=== PATIENT | female | born 1975 | race African-American/Black ===

== ENCOUNTER 2017-12-01 06:01 | Inpatient (IN) ==
[2017-11-25 10:41] LABS: Basophils # 0.1 10*3/uL (0.0-0.2); Basophils % 1.3 % (0.0-0.8); Eosinophils # 0.3 10*3/uL (0.0-0.87); Hemoglobin 10.9 GM/DL (12.0-16.0); Immature Granulocytes % 0.3 %; Immature Granulocytes Absolute 0.02 #; Lymphocytes # 2.2 10*3/uL (1.4-4.0); Lymphocytes % 35.8 % (21.3-54.2); Mean Corpuscular HGB Conc 30.3 GM/DL (32-36); Mean Corpuscular Hemoglobin 21 PG (27-34); Mean Corpuscular Volume 70.3 FL (87-102); Mean Platelet Volume 9.1 FL (9.6-12.0); Monocytes # 0.6 10*3/uL (0.11-0.8); Monocytes % 9.3 % (1.7-12.7); Neutrophils % 48.3 % (38.7-73.9); Platelet Count 577 T/CUMM (130-400); Red Blood Count 5.12 MC/CUMM (3.8-5.5); White Blood Count 6.2 T/CUMM (4-12)
[2017-11-25 10:58] LABS: Partial Thromboplastin Time 27.5 SECS (0-40)
[2017-11-25 11:30] LABS: Hypochromasia 1+
[2017-11-25 11:31] LABS: Apearance,Urine Slightly Hazy (Clear); Bilirubin,Urine Negative (Negative); Blood, Urine Large mg/dL (Negative); Glucose,Urine (UA) Negative (Negative); Ketones,Urine 5 mg/dL (Negative); Mucus,Urine Few /LPF (Occasional); Nitrite,Urine Negative (Negative); Protein,Urine 30 MG/DL; RBC,Urine 1 /HPF (0-4); Squamous Epithelial Cell,Urine Occasional /HPF (0-10); Urine Color Yellow (Yellow); Urine Specific Gravity 1.019 (1.001-1.035); WBC,Urine <1 /HPF (0-6)
[2017-11-25 11:32] LABS: Anisocytosis 1+; Microcytosis 1+; Ovalocytes Slight
[2017-11-25 11:34] LABS: Schistocytes Slight
[2017-11-25 11:36] LABS: Calcium 9.3 MG/DL (8.5-10.1); Osmolality,Calculated 273.5 MOS/KG (273-304); Potassium 3.2 MMOL/L (3.5-5.1)
[2017-11-25 11:37] LABS: Platelet Estimate Increased
[~2017-12-01 06:01] MED LIST: ceFAZolin 1,000 MG in SYRINGE 1 EACH IV ONE
[2017-12-01] MEDS ORDERED: ceFAZolin 1,000 MG VIAL ONE (06:12)
[2017-12-01] MEDS ORDERED: LACTATED RINGERS 1,000 ML IV SCH ×3 (06:30→10:30)
[2017-12-01] MEDS ORDERED: TISSUE ADHESIVE 1 EACH APPLICATOR TOP ONE (06:34)
[2017-12-01] MEDS ORDERED: MINERAL OIL (TOPICAL) 25 ML BOTTLE TOP ONE (06:35)
[2017-12-01] MEDS ORDERED: METHYLENE BLUE 10 ML VIAL IV ONE (06:43)
[2017-12-01 10:05] LABS: Apearance,Urine CLEAR (Clear); Bilirubin,Urine Negative (Negative); Blood, Urine Small mg/dL (Negative); Glucose,Urine (UA) Negative (Negative); Ketones,Urine Negative (Negative); Mucus,Urine Moderate /LPF (Occasional); Nitrite,Urine Negative (Negative); Protein,Urine Negative; RBC,Urine <1 /HPF (0-4); Squamous Epithelial Cell,Urine Occasional /HPF (0-10); Urine Color Yellow (Yellow); Urine Specific Gravity 1.008 (1.001-1.035); Urine Urobilinogen < 2.0 EU/DL (0.2-1.0); WBC,Urine <1 /HPF (0-6)
[2017-12-01] MEDS ORDERED: oxyCODONE/ACETAMINOPHEN 5-325 MG TABLET PO PRN (10:05)
[2017-12-01] MEDS ORDERED: ACETAMINOPHEN 325 MG TABLET PO PRN (10:05)
[2017-12-01] MEDS ORDERED: BENZOCAINE/MENTHOL LOZENGE 18/BOX PO PRN (10:05)
[2017-12-01] MEDS ORDERED: BISACODYL 10 MG SUPP RECTAL PRN (10:05)
[2017-12-01] MEDS ORDERED: IBUPROFEN 800 MG TABLET PO PRN (10:05)
[2017-12-01] MEDS ORDERED: ONDANSETRON 4 MG/2 ML VIAL IV PRN ×2 (10:05→10:14)
[2017-12-01] MEDS ORDERED: HYDROmorphone 2 MG/1 ML VIAL ONE (10:13)
[2017-12-01] MEDS ORDERED: ONDANSETRON 4 MG/2 ML VIAL ONE ×2 (10:13→10:18)
[2017-12-01] MEDS ORDERED: DESFLURANE 1 UNIT/15 MINUTE INH ONE (10:16)
[2017-12-01] MEDS ORDERED: PROPOFOL 200 MG/20 ML VIAL IV ONE (10:16)
[2017-12-01] MEDS ORDERED: SUFentanil 50 MCG/ML AMP ONE (10:17)
[2017-12-01] MEDS ORDERED: MIDAZOLAM 2 MG/2 ML VIAL ONE (10:17)
[2017-12-01] MEDS ORDERED: KETOROLAC 30 MG/1 ML VIAL ONE (10:18)
[2017-12-01] MEDS ORDERED: NEOSTIGMINE 10 MG/10 ML VIAL ONE (10:18)
[2017-12-01] MEDS ORDERED: LACTATED RINGERS 2,000 ML IV ONE (10:18)
[2017-12-01] MEDS ORDERED: PHENYLEPHRINE 1 MG/10 ML SYRINGE IV ONE (10:18)
[2017-12-01] MEDS ORDERED: DEXAMETHASONE 10 MG/1 ML VIAL ONE (10:18)
[2017-12-01] MEDS ORDERED: ROCURONIUM 100 MG/10 ML VIAL IV ONE (10:18)
[2017-12-01] MEDS: HYDROmorphone 2 MG/1 ML VIAL IV PRN ×8 (10:18→20:40)
[2017-12-01] MEDS ORDERED: ACETAMINOPHEN 1,000 MG/100 ML VIAL IV ONE (10:18)
[2017-12-01] MEDS ORDERED: HYDROmorphone 2 MG/1 ML VIAL IV PRN (12:27)
[2017-12-01] MEDS: ceFAZolin 1,000 MG in SYRINGE 1 EACH IV SCH ×2 (16:40→23:38)
[2017-12-01] MEDS: KETOROLAC 30 MG/1 ML VIAL IV PRN (20:35)
[2017-12-02] MEDS: KETOROLAC 30 MG/1 ML VIAL IV PRN (02:17)
[2017-12-02 02:52] LABS: Basophils % 0.2 % (0.0-0.8); Eosinophils % 0.1 % (0.00-10.9); Hematocrit 25.6 VOL% (35.7-47.0); Immature Granulocytes % 0.4 %; Immature Granulocytes Absolute 0.04 #; Lymphocytes # 1.2 10*3/uL (1.4-4.0); Lymphocytes % 11.8 % (21.3-54.2); Mean Corpuscular HGB Conc 31.3 GM/DL (32-36); Mean Corpuscular Hemoglobin 22 PG (27-34); Mean Corpuscular Volume 71.1 FL (87-102); Mean Platelet Volume 9.6 FL (9.6-12.0); Monocytes % 10.1 % (1.7-12.7); Neutrophils # 7.6 10*3/uL (1.4-7.4); Neutrophils % 77.4 % (38.7-73.9); Platelet Count 422 T/CUMM (130-400); White Blood Count 9.8 T/CUMM (4-12)
[2017-12-02 03:32] LABS: Platelet Estimate Increased
[2017-12-02] MEDS ORDERED: ESTRADIOL VALERATE IM 100 MG/5 ML VIAL IM ONE (09:00)
[2017-12-02] MEDS: DOCUSATE SODIUM 100 MG CAPSULE PO PRN (09:24)
[2017-12-02] MEDS: MAGNESIUM HYDROXIDE SUSP 30 ML UDCUP PO PRN (09:24)
[2017-12-03 07:21] VITALS: BP 124/70
[2017-12-03] MEDS: DOCUSATE SODIUM 100 MG CAPSULE PO PRN (08:46)
[2017-12-03] MEDS: MAGNESIUM HYDROXIDE SUSP 30 ML UDCUP PO PRN (08:46)
== END 2017-12-03 11:10 | disposition home or self-care (01) | DRG 743 ==
LOC: N.OB 06:01 → N.OR 06:01 → N.SDSINP 06:03 → N.OR 08:15 → N.OB 10:02 → OBSVTOIN 10:05
PROVIDERS: ADMIT Specialist; ATTEND Specialist